=== PATIENT | female | born 1960 | race Caucasian/White ===

== ENCOUNTER 2018-07-24 21:27 | Emergency (ER) | payer OTHER ==
[2018-07-24 21:48] VITALS: BP 153/86; PULSE 82; TEMP 98; BMI 24.4
--- NOTE | 2018-07-24 22:07 | PDOC ---
History of Present Illness - General History Source: Patient Exam Limitations: No Limitations - History of Present Illness Initial Comments: 07/24/18 22:32 The patient is a 57 year old female with a significant PMH of hiatal hernia and GERD who presents to the emergency department with difficulty breathing through her nose over the past two weeks. Patient states she needs to put in more effort into breathing through her nose whenever her mouth is closed or she is eating. Patient saw her outsewer at the onset of her symptoms who referred her to an ENT doctor. Patient saw the ENT two weeks ago. Patient was scoped, and was told everything was normal and it may just be her GERD acting up. Patient was told to increase her omeprazole dosage. Patient has also used afrin spray yesterday and today. Patient has been using her rhinocort and neti pot at home with minimal improvement. Patients O2 sat in the ER is at 100. Patient is scheduled to see her GI doctor next week. The patient denies chest pain, shortness of breath, headache and dizziness. Denies fever, chills, nausea, vomit, diarrhea and constipation. Denies dysuria, frequency, urgency and hematuria. Allergies: NKA Past surgical history: None reported. Social history: No reported alcohol, drug or cigarette use. <Marta Lauren - Last Filed: 07/24/18 22:32> <Nato Rivera - Last Filed: 07/24/18 23:35> - General Chief Complaint: Respiratory Stated Complaint: BREATHING PROBLEM Time Seen by Provider: 07/24/18 21:59 Past History <Marta Lauren - Last Filed: 07/24/18 22:32> - Past Medical History COPD: No GI Disorders: Yes (GERD, HIATAL HERNIA) - Suicide/Smoking/Psychosocial Hx Smoking History: Never smoked Hx Alcohol Use: No Drug/Substance Use Hx: No Substance Use Type: None <Nato Rivera - Last Filed: 07/24/18 23:35> - Past Medical History Allergies/Adverse Reactions: Allergies Allergy/AdvReac Type Severity Reaction Status Date / Time Sulfa (Sulfonamide Allergy Intermediate Hives Verified 07/24/18 21:30 Antibiotics) sulfamethoxazole Allergy Intermediate Hives Verified 07/24/18 21:30 [From Bactrim] trimethoprim [From Bactrim] Allergy Intermediate Hives Verified 07/24/18 21:30 Home Medications: Ambulatory Orders Nortriptyline HCl [Pamelor -] 25 mg PO HS 07/24/18 Omeprazole 40 mg PO BID 07/24/18 Oxymetazoline 0.05% Nasal Soln [Afrin -] 2 spray NS BID PRN 07/24/18 Review of Systems - Review of Systems Able to Perform ROS?: Yes Comments:: 07/24/18 22:32 ROS: A complete review of 10 out of 10 review of systems is taken and is negative apart from what is previously mentioned below and in the HPI. <Marta Lauren - Last Filed: 07/24/18 22:32> *Physical Exam - Vital Signs Last Vital Signs Temp Pulse Resp BP Pulse Ox 98.0 F 82 20 153/86 100 07/24/18 21:29 07/24/18 21:29 07/24/18 21:29 07/24/18 21:29 07/24/18 21:29 - Physical Exam Comments: 07/24/18 22:32 Vitals: Triage vital signs reviewed General Appearance: No acute distress, well nourished, well developed Nose: (+) Mild sinus tenderness to palpation. (+) Mild increased sinus pressure when leaning her head forward. Throat: Posterior oropharynx without erythema, mucous membranes moist Cardiac: Regular rate and rhythm, no murmurs, no rubs, no gallops Lungs: Clear to auscultation bilateral, good air movement bilaterally Abdomen: Soft, nondistended, normal bowel sounds, nontender to palpation Neuro: AOX3; Cranial Nerves 2-12 grossly intact. Psych: Normal mood, normal affect <Marta Lauren - Last Filed: 07/24/18 22:32> - Vital Signs Last Vital Signs Temp Pulse Resp BP Pulse Ox 98.0 F 82 20 153/86 100 07/24/18 21:29 07/24/18 21:29 07/24/18 21:29 07/24/18 21:29 07/24/18 21:29 <Nato Rivera - Last Filed: 07/24/18 23:35> Medical Decision Making - Medical Decision Making 07/24/18 23:35 Patient well-appearing no apparent distress 3 week history of sensation of nasal congestion has seen ENT is scheduled for GI follow-up started Afrin 1 day ago No acute findings on patient's physical examination neck is supple no evidence of bacterial sinusitis most likely ALLERGIC versus viral sinusitis Recommended Afrin Magdalena pot GI and ENT follow-up Findings, need for follow-up and strict return instructions discussed with patient. <Nato Rivera - Last Filed: 07/24/18 23:35> *DC/Admit/Observation/Transfer - Attestations Physician Attestion: 07/24/18 22:38 Documentation prepared by Marta Lauren, acting as medical assistant float for Nato Rivera MD. <Marta Lauren - Last Filed: 07/24/18 22:32> - Discharge Dispostion Decision to Admit order: No <Nato Rivera - Last Filed: 07/24/18 23:35> Diagnosis at time of Disposition: Nasal congestion - Discharge Dispostion Disposition: HOME Condition at time of disposition: Good - Referrals Referrals: Mitzi Whitaker [Primary Care Provider] - - Patient Instructions Printed Discharge Instructions: Sinusitis (Alternative Therapy) Additional Instructions: Use Afrin nasal spray twice a day for the next 2 days in the morning use Afrin nasal spray weight 20-30 minutes then use Magdalena pot. Use Magdalena pot again in the middle of the day and then again in the evening again after using Afrin. In the evening continue to use the Rhinocort and take your other medications as prescribed. Performe this routine for the next 2 days then discontinue the Afrin but continue using the Magdalena pot 3 times a day. Follow-up with the firefighter type one as scheduled this week as well as with your ENT next week. Return to the emergency department for any fever unilateral face pain thick discharge from her nose severe headache or for any concerns. - Post Discharge Activity
== END 2018-07-24 22:36 | disposition home or self-care (01) ==
LOC: FER 21:27
DX: R09.81 Nasal congestion (principal); K21.9 Gastro-esophageal reflux disease without esophagitis
CPT/HCPCS: 99282-25

== ENCOUNTER 2020-11-09 07:47 | Emergency (ER) | payer OTHER ==
[2020-11-09 07:54] VITALS: BP 128/73; PULSE 87; TEMP 97.9; BMI 25.0
[2020-11-09] MEDS ORDERED: SODIUM CHLORIDE FOR INHALATION 3 ML VIAL.NEB IH ONE (08:20)
[2020-11-09] MEDS ORDERED: PANTOPRAZOLE 20 MG TABLET PO ONE (08:20)
[2020-11-09] MEDS ORDERED: PANTOPRAZOLE 40 MG TABLET ONE (08:33)
[2020-11-09 09:04] LABS: BASO % 0.7 % (0-2.0); EOS % 0.7 % (0-4.5); HEMATOCRIT 35.8 % (32.4-45.2); LYMPH % 27.2 % (8-40); MCH 30.1 pg (25.7-33.7); MCHC 33.6 g/dl (32.0-36.0); MEAN CELL VOLUME 89.6 fl (80-96); MEAN PLT VOLUME 7.6 fl (7.5-11.1); MONO % 7.1 % (3.8-10.2); NEUT % 64.3 % (42.8-82.8); PLATELET COUNT 250 K/MM3 (134-434); RDW 11.4 % (11.6-15.6); WHITE BLOOD COUNT 4.6 K/mm3 (4.0-10.8)
[2020-11-09 09:07] LABS: ALBUMIN 4.1 g/dl (3.4-5.0); BILIRUBIN,TOTAL 0.8 mg/dl (0.2-1); CREATININE 0.8 mg/dl (0.55-1.3); POTASSIUM 3.7 mmol/L (3.5-5.1); TOT PROT 7.1 g/dl (6.4-8.2)
== END 2020-11-09 09:57 | disposition home or self-care (01) ==
LOC: FER 07:47
DX: R09.81 Nasal congestion (principal); R07.9 Chest pain, unspecified; K21.9 Gastro-esophageal reflux disease without esophagitis
CPT/HCPCS: 36415; 71046-TC-FY; 80053; 82550; 82553; 83690; 84484; 85025; 93005; 99285-25